=== PATIENT | female | born 1985 | race Caucasian/White ===

== ENCOUNTER 2016-11-04 13:50 | Emergency (ER) | payer BC ==
[~2016-11-04] VITALS: Ht 162.6 cm; Wt 65.5 kg
[2016-11-04 13:54] VITALS: TEMP 36.9; Ht 162.6 cm; Wt 65.5 kg
[2016-11-04] MEDS ORDERED: SODIUM CHLORIDE 0.9% 1000ML 1,000 ML IV STA (15:34)
[2016-11-04] MEDS ORDERED: OPTIRAY 320 IV PRN (15:45)
[2016-11-04 15:58] LABS: BASO % 0.7 %; BASO ABS # 0.06 K/uL (0-0.2); COMPLETE YES; HEMATOCRIT 36.7 % (37-47); IG% 0.2 %; LYMPH % 28.6 %; LYMPH ABS # 2.44 K/uL (1.2-3.4); MEAN CELL VOLUME 93.4 fL (80-100); MEAN CORPUSCULAR HEMOGLOBIN 31.3 pg (25-34); MEAN CORPUSCULAR HGB CONC 33.5 g/dl (32-36); MEAN PLATELET VOLUME 11.1 fL (7.4-10.4); MONO % 8.5 %; PLATELET COUNT 165 K/uL (130-400); RED BLOOD COUNT 3.93 M/uL (4.2-5.4); WHITE BLOOD COUNT 8.52 K/uL (4.8-10.8)
[2016-11-04] MEDS ORDERED: NITR1CAP32 PO (16:04)
[2016-11-04 16:14] LABS: ALT/SGPT 16 U/L (12-78); AST/SGOT 9 U/L (15-37); BLOOD UREA NITROGEN 7 mg/dl (7-18); BUN/CREATININE RATIO 12.7 (10-20); CALCIUM 8.5 mg/dl (8.5-10.1); CARBON DIOXIDE 28 mmol/L (21-32); CHLORIDE 107 mmol/L (98-107); CREATININE 0.58 mg/dl (0.60-1.20); GLUCOSE 96 mg/dl (70-99); POTASSIUM 3.7 mmol/L (3.5-5.1); SODIUM 143 mmol/L (136-145)
[2016-11-04 16:16] LABS: ALKALINE PHOSPHATASE 50 U/L (45-117)
[2016-11-04 16:26] LABS: MANUAL MICROSCOPIC REQUIRED? NO; REVIEW REQ? NO; URINE APPEARANCE CLEAR (CLEAR); URINE BILIRUBIN NEG (NEG); URINE COLOR YELLOW; URINE EPITHELIAL CELL AUTO >30 /lpf (0-5); URINE NITRITE NEG (NEG); URINE PH 6.5 (4.5-7.5); URINE SPECIFIC GRAVITY 1.007 (1.000-1.030); UROBILINOGEN NEG (NEG); ZZUR CULT IF INDIC CLEAN CATCH NO
--- NOTE | 2016-11-04 18:09 | DIAGNOSTIC IMAGING REPORT ---
CT OF THE ABDOMEN AND PELVIS WITH CONTRAST CLINICAL HISTORY: Right lower quadrant pain. COMPARISON STUDY: None. TECHNIQUE: Following IV administration of 116 mL of Optiray-320, axial images of the abdomen and pelvis were obtained from the lung bases to the proximal femurs. Images were reviewed in the axial, sagittal, and coronal planes. IV contrast was administered without complication. CT DOSE: 294.80 mGy.cm FINDINGS: There is moderate right hydroureteronephrosis due to a 6 mm calculus at the right ureterovesical junction. No additional urinary calculi are identified. The liver, spleen, adrenal glands and pancreas are normal. There is no evidence for a bowel obstruction. The appendix is normal. A 2 cm peripherally enhancing right ovarian lesion likely reflects a corpus luteal cyst. The ovaries are not enlarged. There is no evidence for a bowel obstruction. There is no free fluid. No lymphadenopathy is present. Skeletal structures are unremarkable. IMPRESSION: 1. 6 mm right ureterovesical junction calculus with resultant moderate right hydroureteronephrosis. 2. Normal appendix. 3. 2 cm right ovarian corpus luteal cyst. Electronically signed by: Davis Gambino M.D. 11/04/2016 6:08 PM Dictated Date/Time: 11/04/2016 6:03 PM
--- NOTE | 2016-11-04 18:47 | DIAGNOSTIC IMAGING REPORT ---
PELVIC ULTRASOUND CLINICAL HISTORY: Abdominal pain, nausea and vomiting. COMPARISON STUDY: CT of the abdomen and pelvis November 04, 2016. TECHNIQUE: Transabdominal and transvaginal sonography of the pelvis was performed. FINDINGS: The uterus measures 11.3 x 4.7 x 6.4 cm. The endometrium measures 1.1 cm in thickness. The right ovary measures 4.3 x 2.7 x 3.5 cm and the left measures 4.6 x 2.6 x 2.5 cm. A 1.8 cm hypoechoic left ovarian lesion could reflect a corpus luteal or hemorrhagic cyst. There is a smaller fluid within the pelvis. IMPRESSION: 1. No significant abnormality of the uterus or ovaries. 2. Small amount of fluid within the pelvis. 3. 1.8 cm left ovarian lesion which could reflect a hemorrhagic/corpus luteal cyst. Electronically signed by: Davis Gambino M.D. 11/04/2016 6:46 PM Dictated Date/Time: 11/04/2016 6:45 PM
[2016-11-04 19:29] VITALS: BP 111/66; PULSE 67; O2SAT 100
--- NOTE | 2016-11-04 19:29 | EMERGENCY ROOM VISIT NOTE ---
History Report prepared by Shaquille: Dajuan Valadez Under the Supervision of: Dr. Lucho Bass D.O. First contact with patient: 15:27 Chief Complaint: ABDOMINAL PAIN Stated Complaint: NAUSEA,RT LWR ABD PAIN,BLOOD IN URINE History of Present Illness The patient is a 31 year old female who presents to the Emergency Room with complaints of intermittent right lower quadrant abdominal pain for the past five days. The pain is sharp in nature. The patient started to experience very dark brown urine leading to bright-red blood in her urine six days ago. She noticed the blood in her urine when she went to the bathroom after work. She also complains of nausea that accompanies her pain that led to her vomiting this morning. The patient saw her PCP five days ago was started on Macrobid to treat a UTI. She went to [facility] ED four days ago where she had an entire workup. She had a CT scan that did not show any kidney stones but did show bilateral ovarian cysts. She also had negative blood work. The patient went to her doctor again last night and had a urine dip that showed blood. Her pain was at its worst last night, and she notes that she took pain medicine that was prescribed by her doctor. The patient is scheduled to have a Pelvic US with a Urologist next week but cannot tolerate the pain that long. The patient does not take any daily medications. The patient has two children that were delivered in [facility]. LNMP was October 14. She denies any abnormal vaginal discharge. She does not follow up with an Imaging Aide. Source of History: patient Onset: five days ago Position: abdomen (RLQ) Quality: sharp Timing: intermittent Associated Symptoms: + nausea, + urinary symptoms (hematuria), + vomiting Review of Systems See HPI for pertinent positives & negatives. A total of 10 systems reviewed and were otherwise negative. Past Medical & Surgical Medical Problems: (1) Bilateral ovarian cysts Family History No pertinent family history Social History Smoking Status: Never Smoker Housing Status: lives with family Current/Historical Medications Scheduled Nitrofurantoin Macrocrystals (Macrodantin), 100 MG PO BID Ondasetron Odt (Zofran Odt), 4 MG SL Q6H Tamsulosin Hcl (Flomax), 0.4 MG PO HS Allergies Coded Allergies: No Known Allergies (Unverified , 11/04/16) Physical Exam Vital Signs Date Time Temp Pulse Resp B/P Pulse Ox O2 Delivery O2 Flow Rate FiO2 11/04/16 19:29 67 18 111/66 100 Room Air 11/04/16 17:57 61 17 117/70 100 Room Air 11/04/16 15:30 62 17 115/75 100 Room Air 11/04/16 13:54 36.9 62 17 117/73 100 Room Air Physical Exam CONSTITUTIONAL/VITAL SIGNS: Reviewed / noted above. GENERAL: Non-toxic in appearance. INTEGUMENTARY: Warm, dry, and [place]. HEAD: Normocephalic. EYES: without scleral icterus or trauma. ENT/OROPHARYNX: clear and moist. LYMPHADENOPATHY/NECK: Is supple without lymphadenopathy or meningismus. RESPIRATORY: Lungs clear and equal. CARDIOVASCULAR: Regular rate and rhythm. GI/ABDOMEN: Soft and nontender. No organomegaly or pulsatile mass. No rebound or guarding. Normal bowel sounds. EXTREMITIES: Warm and well perfused. BACK: No CVA tenderness. NEUROLOGICAL: Intact without focal deficits. PSYCHIATRIC: normal affect. MUSCULOSKELETAL: Normally developed with good muscle tone. Medical Decision & Procedures ER Provider Diagnostic Interpretation: Radiology results and stated below per my review and radiologist interpretation: CT OF THE ABDOMEN AND PELVIS WITH CONTRAST CLINICAL HISTORY: Right lower quadrant pain. COMPARISON STUDY: None. TECHNIQUE: Following IV administration of 116 mL of Optiray-320, axial images of the abdomen and pelvis were obtained from the lung bases to the proximal femurs. Images were reviewed in the axial, sagittal, and coronal planes. IV contrast was administered without complication. CT DOSE: 294.80 mGy.cm FINDINGS: There is moderate right hydroureteronephrosis due to a 6 mm calculus at the right ureterovesical junction. No additional urinary calculi are identified. The liver, spleen, adrenal glands and pancreas are normal. There is no evidence for a bowel obstruction. The appendix is normal. A 2 cm peripherally enhancing right ovarian lesion likely reflects a corpus luteal cyst. The ovaries are not enlarged. There is no evidence for a bowel obstruction. There is no free fluid. No lymphadenopathy is present. Skeletal structures are unremarkable. IMPRESSION: 1. 6 mm right ureterovesical junction calculus with resultant moderate right hydroureteronephrosis. 2. Normal appendix. 3. 2 cm right ovarian corpus luteal cyst. Electronically signed by: Davis Gambino M.D. 11/04/2016 6:08 PM Dictated Date/Time: 11/04/2016 6:03 PM PELVIC ULTRASOUND CLINICAL HISTORY: Abdominal pain, nausea and vomiting. COMPARISON STUDY: CT of the abdomen and pelvis November 04, 2016. TECHNIQUE: Transabdominal and transvaginal sonography of the pelvis was performed. FINDINGS: The uterus measures 11.3 x 4.7 x 6.4 cm. The endometrium measures 1.1 cm in thickness. The right ovary measures 4.3 x 2.7 x 3.5 cm and the left measures 4.6 x 2.6 x 2.5 cm. A 1.8 cm hypoechoic left ovarian lesion could reflect a corpus luteal or hemorrhagic cyst. There is a smaller fluid within the pelvis. IMPRESSION: 1. No significant abnormality of the uterus or ovaries. 2. Small amount of fluid within the pelvis. 3. 1.8 cm left ovarian lesion which could reflect a hemorrhagic/corpus luteal cyst. Electronically signed by: Davis Gambino M.D. 11/04/2016 6:46 PM Dictated Date/Time: 11/04/2016 6:45 PM Laboratory Results 11/04/16 15:44 Red Blood Count 3.93, Mean Corpuscular Volume 93.4, Mean Corpuscular Hemoglobin 31.3, Mean Corpuscular Hemoglobin Concent 33.5, Mean Platelet Volume 11.1, Neutrophils (%) (Auto) 58.0, Lymphocytes (%) (Auto) 28.6, Monocytes (%) (Auto) 8.5, Eosinophils (%) (Auto) 4.0, Basophils (%) (Auto) 0.7, Neutrophils # (Auto) 4.94, Lymphocytes # (Auto) 2.44, Monocytes # (Auto) 0.72, Eosinophils # (Auto) 0.34, Basophils # (Auto) 0.06 11/04/16 15:44 Test 11/04/16 15:44 White Blood Count 8.52 K/uL (4.8-10.8) Red Blood Count 3.93 M/uL (4.2-5.4) Hemoglobin 12.3 g/dL (12.0-16.0) Hematocrit 36.7 % (37-47) Mean Corpuscular Volume 93.4 fL (80-100) Mean Corpuscular Hemoglobin 31.3 pg (25-34) Mean Corpuscular Hemoglobin Concent 33.5 g/dl (32-36) Platelet Count 165 K/uL (130-400) Mean Platelet Volume 11.1 fL (7.4-10.4) Neutrophils (%) (Auto) 58.0 % Lymphocytes (%) (Auto) 28.6 % Monocytes (%) (Auto) 8.5 % Eosinophils (%) (Auto) 4.0 % Basophils (%) (Auto) 0.7 % Neutrophils # (Auto) 4.94 K/uL (1.4-6.5) Lymphocytes # (Auto) 2.44 K/uL (1.2-3.4) Monocytes # (Auto) 0.72 K/uL (0.11-0.59) Eosinophils # (Auto) 0.34 K/uL (0-0.5) Basophils # (Auto) 0.06 K/uL (0-0.2) RDW Standard Deviation 43.3 fL (36.4-46.3) RDW Coefficient of Variation 12.5 % (11.5-14.5) Immature Granulocyte % (Auto) 0.2 % Immature Granulocyte # (Auto) 0.02 K/uL (0.00-0.02) Urine Color YELLOW Urine Appearance CLEAR (CLEAR) Urine pH 6.5 (4.5-7.5) Urine Specific [place] 1.007 (1.000-1.030) Urine Protein NEG (NEG) Urine Glucose (UA) NEG (NEG) Urine Ketones 1+ (NEG) Urine Occult Blood TRACE (NEG) Urine Nitrite NEG (NEG) Urine Bilirubin NEG (NEG) Urine Urobilinogen NEG (NEG) Urine Leukocyte Esterase MODERATE (NEG) Urine WBC (Auto) 1-5 /hpf (0-5) Urine RBC (Auto) 0-4 /hpf (0-4) Urine Hyaline Casts (Auto) 0 /lpf (0-5) Urine Epithelial Cells (Auto) >30 /lpf (0-5) Urine Bacteria (Auto) NEG (NEG) Urine Test NEG (NEG) Anion Gap 8.0 mmol/L (3-11) Est Creatinine Clear Calc Drug Dose 121.4 ml/min Estimated GFR () 142.4 Estimated GFR (Non- 122.8 BUN/Creatinine Ratio 12.7 (10-20) Calcium Level 8.5 mg/dl (8.5-10.1) Total Bilirubin 0.3 mg/dl (0.2-1) Direct Bilirubin < 0.1 mg/dl (0-0.2) Aspartate Amino Transf (AST/SGOT) 9 U/L (15-37) Alanine Aminotransferase (ALT/SGPT) 16 U/L (12-78) Alkaline Phosphatase 50 U/L (45-117) Total Protein 7.0 gm/dl (6.4-8.2) Albumin 3.9 gm/dl (3.4-5.0) Lipase 125 U/L (73-393) Laboratory results as stated above per my review. Medications Administered Medications (Trade) Dose Ordered Sig/Alhaji Route Start Time Stop Time Status Last Admin Dose Admin Sodium Chloride (Nss 1000ml) 1,000 ml @ 999 mls/hr Q1H1M STAT IV 11/04/16 15:34 11/04/16 16:34 DC 11/04/16 15:52 999 MLS/HR ED Course 1528: Previous medical records were reviewed. The patient was evaluated in room B7. A complete history and physical examination was performed. 1534: NSS 1000 ml @ 999 mls/hr. 1919: Updated the patient. Discussed the findings with her. She verbalized understanding and agreement of the treatment plan. The patient is ready for discharge. Medical Decision Differential considered: pancreatitis, hepatitis, or acute cholecystitis, AAA, UTI, pyelonephritis, kidney stones, appendicitis, diverticulitis, shingles, bowel obstruction mesenteric ischemia, intussusception,hernia, ovarian torsion, ruptured ovarian cyst,ectopic , . This is a 31-year-old female who presents to the ED with a chief complaint of right lower quadrant abdominal pain. The patient states that her symptoms started 6 days ago. She initially started to urinate urine and then it became bright red. She states that she feels a little bloated. The patient states that her pain comes and goes. She was prescribed Macrobid for UTI on Wednesday. She states that she had a CAT scan in the ER [facility] that revealed ovarian cyst. She developed some nausea and vomiting this morning in addition to the pain. The patient's exam was noted above. CT scan of the abdomen and pelvis reveals a 6 mm right UVJ with moderate right [place]. Urine did not show obvious infection. test was negative. Complete metabolic panel was normal. CBC is normal. Ultrasound of the pelvis revealed a 1.8 cm left ovarian cyst. The patient was told results the test. She was placed on Flomax and Zofran. She is given a urine strainer and a urology follow-up. She is felt to be stable for discharge and outpatient follow-up. She did not require additional pain medicine as she has some pain medicine from when she was at [facility]. Impression Primary Impression: Renal colic on right side Additional Impression: Ureteral stone with hydronephrosis Scribe Attestation The scribe's documentation has been prepared under my direction and personally reviewed by me in its entirety. I confirm that the note above accurately reflects all work, treatment, procedures, and medical decision making performed by me. Departure Information Dispostion Home / Self-Care Prescriptions Tamsulosin Hcl (FLOMAX) 0.4 Mg Cap 0.4 MG PO HS, #10 CAP Prov: Lucho Bass D.OBret 11/04/16 Ondasetron Odt (ZOFRAN ODT) 4 Mg Tab 4 MG SL Q6H for Nausea, #20 TAB Prov: Lucho Bass D.O. 11/04/16 Referrals Brianna Metcalf M.D. (PCP) Rizwan Breen MD Patient Instructions ED Stone Renal W Colic, My [facility] Additional Instructions Strain urine for stone. Flomax as prescribed until passage of stone. Follow-up with urology. Zofran: Allow one tablet to dissolve under the tongue every 6 hours as needed for nausea or vomiting. Take ibuprofen 600 mg every 6 hours for pain. Problem Qualifiers
[2016-11-04] MEDS ORDERED: TAMSULOSIN HCL 0.4 MG CAP PO ONE (19:30)
[2016-11-04] MEDS ORDERED: ONDA4TAB10 SL (19:30)
[2016-11-04] MEDS ORDERED: TAMS0.4C38 PO (19:30)
== END 2016-11-04 19:38 | disposition home or self-care (01) ==
LOC: C.EDB 13:58
DX: N23 Unspecified renal colic (principal); N13.2 Hydronephrosis with renal and ureteral calculous obstruction

== ENCOUNTER → 2016-11-10 | Outpatient (CLI) | payer BC ==
[~2016-11-10] MED LIST: NITR1CAP32 PO; ONDA4TAB10 SL; TAMS0.4C38 PO
--- NOTE | 2016-11-10 10:37 | DIAGNOSTIC IMAGING REPORT ---
KUB CLINICAL HISTORY: N20.0 [id number] COMPARISON STUDY: CT scan dated 11/04/2016 FINDINGS: The bowel gas pattern is unremarkable. There is a mild levoscoliosis. No renal calculi are visualized. There are multiple nonspecific pelvic basin calcifications. IMPRESSION: 1. No renal calculi identified on conventional radiographic imaging 2. Nonspecific pelvic basin calcifications. The right UPJ calculus described on the prior CT scan is not visualized with certainty. Electronically signed by: Clement Lozano M.D. 11/10/2016 10:35 AM Dictated Date/Time: 11/10/2016 10:33 AM
== END | disposition home or self-care (01) ==
LOC: C.RAD 10:16
PROVIDERS: ATTEND Urology
DX: N20.0 Calculus of kidney (principal)